=== PATIENT | female | born 1980 | race Caucasian/White ===

== ENCOUNTER 2017-01-18 06:18 | Day surgery (SDC) | payer BC, OTHER ==
[2017-01-16 13:14] LABS: APPEARANCE,URINE CLEAR; BILIRUBIN,URINE NEGATIVE (NEGATIVE); GLUCOSE, URINE NEGATIVE (NEGATIVE); KETONES,URINE NEGATIVE (NEGATIVE); LEUKOCYTE ESTERASE,URINE NEGATIVE (NEGATIVE); NITRITE,URINE NEGATIVE (NEGATIVE); PROTEIN,URINE NEGATIVE (NEGATIVE); URINE SPECIFIC GRAVITY 1.013; UROBILINOGEN,URINE NEGATIVE mg/dL (<2.0)
[2017-01-16 13:25] LABS: HEMATOCRIT 40.9 % (36.0-47.0); HEMOGLOBIN 14.1 g/dL (12.0-15.5); HGB HCT DIFFERENCE 1.4; MEAN CORPUSCULAR HEMOGLOBIN 31.2 pg (27.0-33.4); MEAN CORPUSCULAR HGB CONC 34.4 g/dL (32.0-36.0); MEAN CORPUSCULAR VOLUME 91 fl (80-97); RED BLOOD COUNT 4.52 10^6/uL (3.72-5.28); RED CELL DISTRIBUTION WIDTH 13.1 % (11.5-14.0); WHITE BLOOD COUNT 8.4 10^3/uL (4.0-10.5)
[~2017-01-18 06:18] MED LIST: HYDROMORPHONE HCL INJ/PF 2 MG/ML AMPULE INJ PRN; IBUPROFEN 800 MG TABLET PO PRN; LACTATED RINGERS 1000 ML IV PRN; LIDOCAINE 0.5% INJ-PF (5 MG/ML) 50 ML SDV SUBCUT PRN; OXYCODONE-ACETAMINOPHEN 5-325 MG TABLET PO PRN
[2017-01-18] MEDS ORDERED: CEFAZOLIN 1 GM/D5W RTU 1 GM/50 ML RTUPB IV ONE (07:28)
[2017-01-18] MEDS ORDERED: FENTANYL CITRATE INJ/PF 100 MCG/2 ML AMPUL ONE ×2 (08:32→08:33)
[2017-01-18] MEDS ORDERED: ACETAMINOPHEN 100 ML IV ONE (08:33)
[2017-01-18] MEDS ORDERED: MIDAZOLAM 2 MG/2 ML INJ ONE (08:33)
[2017-01-18] MEDS ORDERED: PROPOFOL INJ 200 MG/20 ML VIAL IV ONE (08:33)
[2017-01-18] MEDS ORDERED: FENTANYL CITRATE INJ/PF 100 MCG/2 ML AMPUL IV PRN ×3 (09:14)
[2017-01-18] MEDS ORDERED: MORPHINE SULFATE 10 MG/ML INJ IV PRN (09:14)
[2017-01-18] MEDS ORDERED: MEPERIDINE HCL/PF INJ 25 MG/1 ML DISP.SYRIN IV PRN (09:14)
[2017-01-18] MEDS ORDERED: PROMETHAZINE HCL INJ 25 MG/1 ML VIAL IV PRN (09:14)
[2017-01-18] MEDS ORDERED: DIPHENHYDRAMINE HCL 50 MG/ML VIAL IV PRN (09:14)
[2017-01-18] MEDS ORDERED: ONDANSETRON HCL INJ/PF 4 MG/2 ML SDV IV PRN (09:57)
--- NOTE | 2017-01-18 09:57 | Operative Report ---
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 anesthesia Anesthesia provider: [Dr. Friedman, NADINE Ambrose] Estimated blood loss: [5 mL] Urine output: [Voided prior to the OR] IV fluids: [800 mL] Complications: [None] Specimens: [Approximately 1 x 2 cm mass excised from the left side of the Pfannenstiel incision suspect endometrioma with chocolate cyst fluid within it, nonruptured at excision] Findings: [In the preoperative holding area the size of the incisional mass was marked and confirmed with the patient. An Approximately 1 x 2 cm endometrioma clinically removed from the fascia superior to the patient's Pfannenstiel incision on the left. ] Indications: [36-year-old with prior section in 2007 presents with approximately 1 cm mass on the left portion of her incision superior to the Pfannenstiel incision the patient reports causes burning pain and sometimes does enlarge with her menses. Ultrasound done on 11/23/2016 with approximately 1 x 2 cm endometrioma. Reviewed with the patient that it does not appear to be hernia of the incision on ultrasound however will ask general surgery to evaluate if needed. We reviewed that excision of this mass may not resolve her pain as her description of her pain is neuropathic. The risks benefits and alternatives were reviewed and patient desired to proceed with planned procedure. ] Procedure: The patient was taken to the operating room where general anesthesia was obtained and found to be adequate. She was then prepped and draped in the normal sterile fashion and placed in the dorsal supine position. The marked portion of the Pfannenstiel incision was then incised and carried through to the underlying layer of the fascia with the scalpel as well as the Bovie. The incisional mass became increasingly more palpable as the fascia was reached. The incisional mass was enclosed within the fascia and removed easily without rupturing the cyst with sharp dissection. Interceed was then placed underneath the fascia and the overlying fascial defect created by removal of the endometrioma was then repaired with 0 Vicryl in a running fashion. The underlying subcuticular tissue was then closed with 2-0 Vicryl in an interrupted fashion. The skin was closed with 3-0 Monocryl in a running subcuticular fashion with overlying Dermabond for additional dressing as well as wound closure. The patient tolerated the procedure well. Sponge lap needle and instrument counts are correct times 2. 1 g of Ancef were given prior to skin incision. The patient was taken to the recovery area awake and in stable condition.
[2017-01-18 12:03] VITALS: BP 102/61
[2017-01-18] MEDS ORDERED: LIDOCAINE 2% INJ-PF (20 MG/ML) 10 ML AMPUL ONE (13:14)
[2017-01-18] MEDS ORDERED: SUCCINYLCHOLINE CHLORIDE INJ 200 MG/10 ML VIAL ONE (13:14)
[2017-01-18] MEDS ORDERED: ONDANSETRON HCL INJ/PF 4 MG/2 ML SDV ONE (13:14)
[2017-01-18] MEDS ORDERED: DEXAMETHASONE SOD PHOSPHATE INJ 4 MG/1 ML VIAL ONE (13:14)
== END 2017-01-18 11:50 | disposition home or self-care (01) ==
LOC: OROUT 06:18 → EDSTATUS 08:30 → OROUT 11:50
PROVIDERS: ATTEND Student in an Organized Health Care Education/Training Program
PROC: 0JB80ZZ Excision of Abdomen Subcutaneous Tissue and Fascia, Open Approach (ICD-10-PCS; principal; 2017-01-18 08:30)
DX: N80.6 Endometriosis in cutaneous scar (principal); K43.2 Incisional hernia without obstruction or gangrene; F17.210 Nicotine dependence, cigarettes, uncomplicated; Z88.2 Allergy status to sulfonamides; Z79.899 Other long term (current) drug therapy
CPT/HCPCS: 86900; 86901; 36415; 86850; 85027; 81005; 81025; 88305 ×2; 58999; C1765; J2250; J0690; J1100; J3010; J0330; J2405; J2704; J3490; J0131; 840

== ENCOUNTER → 2017-03-02 | Outpatient (CLI) | payer BC, OTHER | LOC: RAD 15:05 | PROVIDERS: ATTEND Student in an Organized Health Care Education/Training Program | DX: N97.9 Female infertility, unspecified (principal); N80.9 Endometriosis, unspecified | CPT/HCPCS: 58340; 74740 ==

== ENCOUNTER 2018-07-17 17:05 | Emergency (ER) | payer BC, OTHER ==
[2018-07-17 17:28] VITALS: BP 113/59
[2018-07-17 17:58] LABS: APPEARANCE,URINE SLIGHTLY-CLOUDY; BILIRUBIN,URINE NEGATIVE (NEGATIVE); COLOR,URINE STRAW; GLUCOSE, URINE NEGATIVE (NEGATIVE); KETONES,URINE NEGATIVE (NEGATIVE); LEUKOCYTE ESTERASE,URINE NEGATIVE (NEGATIVE); NITRITE,URINE NEGATIVE (NEGATIVE); PROTEIN,URINE NEGATIVE (NEGATIVE); URINE SPECIFIC GRAVITY 1.004; UROBILINOGEN,URINE NEGATIVE mg/dL (<2.0)
[2018-07-17] MEDS ORDERED: KETOROLAC TROMETHAMINE 60 MG/2 ML SDV IM ONE (18:54)
--- NOTE | 2018-07-17 18:55 | ER Document Report ---
ED Medical Screen (RME) - General Chief Complaint: Abdominal Pain Stated Complaint: ABDOMINAL/BACK PAIN Time Seen by Provider: 07/17/18 18:53 Notes: 37-year-old female patient to the emergency department complaining of left lower quadrant pain. History of ovarian cyst. Thinks that this is. Symptoms of been present for 2 weeks but not getting better. Has been taking ibuprofen with no relief. Denies any other major symptoms at this time I have greeted and performed a rapid initial assessment of this patient. A comprehensive ED assessment and evaluation of the patient, analysis of test results and completion of the medical decision making process will be conducted by additional ED providers. TRAVEL OUTSIDE OF THE [place] IN LAST 30 DAYS: No - Related Data Allergies/Adverse Reactions: Sulfa (Sulfonamide Antibiotics) Allergy (Severe, Verified 07/17/18 17:07) vaginal swelling Past Medical History - Social History Chew tobacco use (# tins/day): No Frequency of alcohol use: Occasional Drug Abuse: None - Past Medical History Cardiac Medical History: Denies: Hx Coronary Artery Disease, Hx Heart Attack, Hx Hypertension Pulmonary Medical History: Denies: Hx Asthma, Hx Bronchitis, Hx COPD, Hx Pneumonia Neurological Medical History: Denies: Hx Cerebrovascular Accident, Hx Seizures Renal/ Medical History: Denies: Hx Peritoneal Dialysis Musculoskeltal Medical History: Denies Hx Arthritis Past Surgical History: Reports: Hx Section - 2007, Hx Gynecologic Surgery - endometrium - Immunizations Hx Diphtheria, Pertussis, Tetanus Vaccination: Yes Physical Exam - Vital signs Vitals: Temp Pulse Resp BP Pulse Ox 98.3 F 65 16 113/59 L 99 07/17/18 17:27 07/17/18 17:27 07/17/18 17:27 07/17/18 17:27 07/17/18 17:27 Course - Vital Signs Vital signs: Temp Pulse Resp BP Pulse Ox 98.3 F 65 16 113/59 L 99 07/17/18 17:27 07/17/18 17:27 07/17/18 17:27 07/17/18 17:27 07/17/18 17:27 Doctor's Discharge - Discharge Referrals: INDIRA CORTES MD [Primary Care Provider] - Follow up as needed
--- NOTE | 2018-07-17 23:12 | ER Document Report ---
ED General - General Chief Complaint: Abdominal Pain Stated Complaint: ABDOMINAL/BACK PAIN Time Seen by Provider: 07/17/18 18:53 TRAVEL OUTSIDE OF THE [place] IN LAST 30 DAYS: No - HPI Notes: Patient is a 37-year-old female who presents to the ED complaining of left lower pelvic pain times 1 week that has been relatively constant. Patient states that she does have a history of cyst and believes that it is another ovarian cyst. Patient states that we are on her way home so she decided to stop in to check an ultrasound performed. Patient states the pain does not radiate. She is eating and drinking without any difficulties. She is urinating normally and having normal bowel movements. She has not had any vaginal discharge, odor, or bleeding. Her last menstrual period was 2 weeks ago. No other concerns or complaints. Denies any headache, fever, URI, sore throat, chest pain, palpitations, syncope, cough, shortness of breath, wheeze, dyspnea, nausea/vomiting/diarrhea, urinary retention, dysuria, hematuria, back pain, loss of control of bowel or bladder, numbness/tingling, saddle anesthesia , muscle paralysis/weakness, or rash. - Related Data Allergies/Adverse Reactions: Sulfa (Sulfonamide Antibiotics) Allergy (Severe, Verified 07/17/18 17:07) vaginal swelling Past Medical History - Social History Smoking Status: Current Every Day Smoker Chew tobacco use (# tins/day): No Frequency of alcohol use: Occasional Drug Abuse: None Family History: Reviewed & Not Pertinent Patient has suicidal ideation: No Patient has homicidal ideation: No - Past Medical History Cardiac Medical History: Denies: Hx Coronary Artery Disease, Hx Heart Attack, Hx Hypertension Pulmonary Medical History: Denies: Hx Asthma, Hx Bronchitis, Hx COPD, Hx Pneumonia Neurological Medical History: Denies: Hx Cerebrovascular Accident, Hx Seizures Renal/ Medical History: Denies: Hx Peritoneal Dialysis Musculoskeletal Medical History: Denies Hx Arthritis Past Surgical History: Reports: Hx Section - 2007, Hx Gynecologic Surgery - endometrium - Immunizations Hx Diphtheria, Pertussis, Tetanus Vaccination: Yes Review of Systems - Review of Systems -: Yes All other systems reviewed and negative Physical Exam - Vital signs Vitals: Temp Pulse Resp BP Pulse Ox 98.3 F 65 16 113/59 L 99 07/17/18 17:27 07/17/18 17:27 07/17/18 17:27 07/17/18 17:27 07/17/18 17:27 - Notes Notes: PHYSICAL EXAMINATION: GENERAL: Well-appearing, well-nourished and in no acute distress. LUNGS: Breath sounds clear to auscultation bilaterally and equal. No wheezes rales or rhonchi. HEART: Regular rate and rhythm without murmurs, rubs, gallops. ABDOMEN: Soft, nondistended abdomen. No guarding, no rebound. No masses appreciated. Normal bowel sounds present. No CVA tenderness bilaterally. + mild tenderness to the Lt lower pelvic area. No tenderness at [place]. Musculoskeletal: FROM to passive/active. Strength 5+/5. Extremities: No cyanosis, clubbing, or edema b/l. Peripheral pulses 2+. Capillary refill less than 3 seconds. NEUROLOGICAL: Normal speech, normal gait. PSYCH: Normal mood, normal affect. SKIN: Warm, Dry, normal turgor, no rashes or lesions noted. Course - Re-evaluation Re-evalutation: 07/17/18 23:10 We have been waiting on her radiology report for 2-1/2 hours. Apparently, there are IT issues on the other and and we are not receiving reports. Radiology has been trying to get reports back in and they also told me that they had to resend her report to the night radiologist as well. Patient is currently an afebrile, well-hydrated, 37-year-old female who presents to the ED with left lower pelvic pain, unspecified, but suspect possible cyst. Vitals are acceptable without any significant tachycardia, tachypnea, or hypoxia. PE is otherwise unremarkable. Urinalysis and hCG were unremarkable. Transvaginal ultrasound report is pending. Patient does not want to wait any longer for her report and left without her discharge instructions; although, instructions were verbally given to her. Advised patient that I will call her this evening there is anything emergent otherwise she can call in the morning. Patient is aware of the risk and benefit of leaving without having the report back which includes worsening condition and possible . Recheck with your PCM in 2-3 days. Schedule an appoint with OB /DATA ENTRY REPRESENTATIVE. Return to the ED with any worsening/concerning symptoms otherwise as reviewed in discharge. Patient is in agreement. - Vital Signs Vital signs: Temp Pulse Resp BP Pulse Ox 98.3 F 65 16 113/59 L 99 07/17/18 17:27 07/17/18 17:27 07/17/18 17:27 07/17/18 17:27 07/17/18 17:27 Discharge - Discharge Clinical Impression: Pelvic pain Condition: Stable Disposition: HOME, SELF-CARE Instructions: Pelvic Pain ([facility]) Additional Instructions: Your leaving the emergency department with an incomplete workup. Risk includes worsening condition and even . He verbalized understanding to this. I will call you if there is anything emergent on your ultrasound once we get the report back in tonight, otherwise, you can call in the morning for your results. Recheck with your PCM in 2-3 days. Schedule appointment with TUBE TESTER for further evaluation and management Tylenol/Motrin as needed Return to the ED with any worsening symptoms and/or development of fever, headache, chest pain, palpitations, syncope, shortness of breath, trouble breathing, abdominal pain, n/v/d, blood in stool/urine, loss of control of bowel /bladder, urinary retention, muscle weakness/paralysis, saddle anesthesia, numbness/tingling, or other worsening symptoms that are concerning to you. Forms: Smoking Cessation Education Referrals: INDIRA CORTES MD [Primary Care Provider] - 07/19/18
--- NOTE | 2018-07-17 23:54 | RADIOLOGY REPORT (SQ) ---
EXAM DESCRIPTION: US PELVIS COMPLETED DATE/TME: 07/17/2018 18:54 CLINICAL HISTORY: 37 years, Female, LLQ pain COMPARISON: None. TECHNIQUE: Transabdominal pelvic ultrasound was done followed by Doppler evaluation of the ovaries LIMITATIONS: None. FINDINGS: The right ovary is not visualized. The left ovary measures 4.0 x 2.8 x 2.4 cm and shows normal blood flow and Doppler signal. A benign 1.6 cm follicle is seen in the left ovary, not requiring any imaging follow-up. The uterus measures 6.3 x 3.8 x 4.3 cm without any focal lesions. The endometrial thickness is normal at 11 mm. The cervix measures 2.9 cm and there is presence of a nabothian cyst in the uterine cervix. There is no visualization of any adnexal masses or free fluid in the pelvis IMPRESSION: Nonvisualization of the right ovary. Unremarkable left ovary, uterus and endometrium 2010 [employer]- All Rights Reserved
== END 2018-07-17 23:17 | disposition home or self-care (01) ==
LOC: ER 17:05
DX: R10.2 Pelvic and perineal pain (principal); F17.200 Nicotine dependence, unspecified, uncomplicated; Z87.42 Personal history of other diseases of the female genital tract; Z88.2 Allergy status to sulfonamides
CPT/HCPCS: 99284; 96372; 81025; 81001; 76856; 93976; J1885